=== PATIENT | female | born 1975 | race Hispanic/Latino ===

== ENCOUNTER 2016-10-16 10:30 | Day surgery (SDC) | payer BC ==
[~2016-10-16 10:30] MED LIST: LACTATED RINGERS 1,000 ML IV SCH; PEPCID PO NR; VERSED IV NR
[2016-10-16] MEDS ORDERED: NEO SYNEPHRINE/NS Syringe(OR USE) IV ONE (11:00)
--- NOTE | 2016-10-16 11:35 | Anesthesia Day of Surgery ---
Anesthesia Day of Surgery - Day of Surgery Patient Examined: Yes Patient H&P Reviewed: Yes Patient is NPO: Yes
--- NOTE | 2016-10-16 11:37 | Anesthesia Consultation ---
Anesthesia Consult and Med Hx Date of service: 10/16/16 - Airway Anesthetic Teeth Evaluation: Good ROM Head & Neck: Adequate Mental/Hyoid Distance: Adequate Mallampati Class: Class III Intubation Access Assessment: Probably Good - Pulmonary Exam CTA: Yes - Cardiac Exam Cardiac Exam: RRR Anesthetic Concerns: PONV - Pre-Operative Health Status ASA Pre-Surgery Classification: ASA2 Proposed Anesthetic Plan: General - Pulmonary Hx Smoking: Yes (20pkyrs) Hx Sleep Apnea: No - Central Nervous System Hx Psychiatric Problems: Yes (Anxiety) - Gastrointestinal Hx Gastroesophageal Reflux Disease: Yes (occasional, takes tums; no reflux symptoms last night or this morning) - Endocrine Hx Liver Disease: No (high cholesterol) - Other Systems Hx Alcohol Use: No Hx Substance Use: No Hx Cancer: No
[2016-10-16] MEDS ORDERED: ZOFRAN IV PRN (11:39)
[2016-10-16] MEDS ORDERED: LACTATED RINGERS 1,000 ML IV SCH (12:00)
[2016-10-16] MEDS ORDERED: SUBLIMAZE ONE ×2 (12:16→13:24)
[2016-10-16] MEDS ORDERED: XYLOCAINE MPF 2% ONE (12:16)
[2016-10-16] MEDS ORDERED: DECADRON ONE (12:16)
[2016-10-16] MEDS ORDERED: ZOFRAN ONE (12:16)
[2016-10-16] MEDS ORDERED: DIPRIVAN 10 MG/ML IV ONE (12:16)
--- NOTE | 2016-10-16 12:33 | Short Stay Summary ---
Short Stay Documentation Date of service: 10/16/16 - History Principal diagnosis: Abnormal uterine bleeding H&P: obtained from office Past Medical History: No medical history Past Surgical History: cholecystectomy, Other (tubal ligation) Social history: - Allergies and Medications Current Medications: Allergies cashew nut Allergy (Verified 10/16/16 11:39) Anaphylaxis erythromycin base [Erythromycin Base] Allergy (Verified 10/15/16 13:06) Unknown Home Medications Medication Instructions Recorded Confirmed Last Taken Type PARoxetine (NF) [Paxil (Nf)] 40 mg PO DAILY 01/06/13 10/15/16 10/15/16 History Ezetimibe [Zetia] 10 mg PO QDAY 10/15/16 10/15/16 10/15/16 History Omeprazole 40 mg PO DAILY 10/15/16 10/15/16 10/15/16 History Active Medications Famotidine (Pepcid) 20 mg PO PREOP NR Stop: 10/16/16 23:45 Last Admin: 10/16/16 11:05 Dose: 20 mg Hydromorphone HCl (Dilaudid) 0.5 mg IV Q10MIN PRN PRN Reason: Pain , Severe (7-10) Stop: 10/19/16 11:40 Lactated Ringer's (Lactated Ringers) 1,000 mls @ 100 mls/hr IV DIRECT PEYMAN Last Admin: 10/16/16 11:15 Dose: 100 mls/hr Lactated Ringer's (Lactated Ringers) 1,000 mls @ 100 mls/hr IV DIRECT PEYMAN Midazolam HCl (Versed) 2 mg IV PREOP NR Stop: 10/16/16 23:59 Last Admin: 10/16/16 11:29 Dose: 2 mg - Physical exam General appearance: no acute distress Integumentary: no rash, no growths HEENT: Atraumatic Lungs: Clear to auscultation, Normal air movement Breasts: normal Heart: Regular rate, Normal S1, Normal S2 Gastrointestinal: normal, normoactive bowel sounds Female Genitourinary: normal Rectal Exam: deferred Extremities: no ischemia, No edema - Brief post op/procedure progress note Date of procedure: 10/16/16 Pre-op diagnosis: Menorrhagia Post-op diagnosis: same Procedure: NovaSure Endometrial Ablation Anesthesia: MAC Findings: Normal appearing endometrium Surgeon: GLORIA VAZQUEZ Estimated blood loss: minimal Pathology: list (Endoemetrial curretings) Specimen disposition: to lab Condition: stable - Hospital course Hospital course: Unremarkable - Disposition Condition at discharge: Good Disposition: DC- TO HOME OR SELFCARE Short Stay Discharge Plan Activity: advance as tolerated Weight Bearing Status: Weight Bear as Tolerated Diet: regular Follow up with: PRIMARY CARE, [Primary Care Provider] - 7 Days GLORIA VAZQUEZ MD [Staff Physician] - 14 Days Prescriptions: HYDROcodone/APAP 7.5-325 [Warren 7.5/325] 1 each PO Q6HR PRN #20 tablet PRN Reason: Pain Ibuprofen [Motrin] 800 mg PO Q8HR PRN #40 tablet PRN Reason: Pain
[2016-10-16] MEDS ORDERED: NACL 0.9% IR ONE ×2 (12:59)
[2016-10-16] MEDS ORDERED: TORADOL ONE (13:12)
--- NOTE | 2016-10-16 13:49 | Operative Report ---
Operative Report Operative Report: Preoperative diagnosis: Perimenopausal menorrhagia Postoperative diagnosis: Same Procedure: NovaSure endometrial ablation Surgeon: Dr. Kat Hoyos Anesthesia: MAC Complications: None Specimens: Endometrial curretitngs EBL: Minimal Urine output: 150 mL clear Procedure: The patient was taken to the OR with IV running and in place. She was given adequate anesthesia without difficulty. She was placed in the dorsal lithotomy position. She was then prepped and draped in the normal sterile fashion. Attention was turned to the patient's vagina. Bladder was drained of approximately 150 mL of clear yellow urine. A speculum was placed in the patient's vagina. The cervix was visualized and grasped with a single-tooth tenaculum. The cervix was gently dilated up to approximately 10 mm. Following this the hysteroscope was introduced into the uterine cavity. There was no obvious pathology. Endometrial currettage was then performed. NovaSure ablation was then performed according to data integration architect's instructions. The cycle lasted approximately 51 seconds. Once the ablation device was removed the hysteroscope was reintroduced. There appeared to be a good result with maximum amount of burn point all instruments removed from the patient's vagina. She was then awakened and taken to recovery in stable condition. The sponge and instrument counts were correct 2.
[2016-10-16] MEDS: DILAUDID IV PRN ×2 (14:10→14:30)
--- NOTE | 2016-10-16 14:32 | Post Anesthesia Evaluation ---
- Post Anesthesia Evaluation Patient Participated: Yes Airway Patent: Yes Stable Respiratory Function: Yes Nausea/Vomiting: No Temp > 96.8F: Yes Pain Manageable: Yes Adequeate Hydration: Yes Anesthesia Complications: No Block Receding Appropriately: Not Applicable Patient on Ventilator: No
[2016-10-16] MEDS ORDERED: NORCO 5/325 PO ONE (14:59)
[2016-10-16 15:36] VITALS: BP 121/83
== END 2016-10-16 10:31 | disposition home or self-care (01) ==
LOC: OR 10:30
PROVIDERS: ATTEND Obstetrics & Gynecology
DX: N92.4 Excessive bleeding in the premenopausal period (principal); E78.00 Pure hypercholesterolemia, unspecified; K21.9 Gastro-esophageal reflux disease without esophagitis; F41.9 Anxiety disorder, unspecified; F17.210 Nicotine dependence, cigarettes, uncomplicated; Z88.1 Allergy status to other antibiotic agents; Z91.018 Allergy to other foods; Z90.49 Acquired absence of other specified parts of digestive tract; Z98.51 Tubal ligation status; Z79.899 Other long term (current) drug therapy
CPT/HCPCS: 58563; 81025; 88305; A4217; J1100; J1170; J1885; J2250; J2370; J2405; J2704; J3010; J7120